=== PATIENT | male | born 2000 | race Caucasian/White ===

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

== ENCOUNTER 2021-12-01 21:33 | Emergency (ER) | payer SELFPAY ==
[2021-12-01 22:08] VITALS: BP 135/88; PULSE 79; TEMP 97.9; BMI 21.2
[2021-12-02] MEDS ORDERED: AMOX TR/POT CLAV 875MG/125MG TABLETS (FP) PO ONE (01:10)
[2021-12-02] MEDS ORDERED: ACETAMINOPHEN 325 MG TABLET (FP) PO ONE (01:10)
[2021-12-02] MEDS ORDERED: ACETAMINOPHEN 325 MG TABLET (FP) ONE (01:12)
[2021-12-02] MEDS ORDERED: AMOX TR/POT CLAV 875MG/125MG TABLETS (FP) ONE (01:12)
[2021-12-02] MEDS ORDERED: KETOROLAC TROMETHAMINE 30 MG/1 ML VIAL IM ONE (01:14)
[2021-12-02] MEDS ORDERED: DEXAMETHASONE SOD PHOSPHATE 10 MG/1 ML VIAL IM ONE (01:14)
[2021-12-02] MEDS ORDERED: KETOROLAC TROMETHAMINE 30 MG/1 ML VIAL ONE (01:16)
[2021-12-02] MEDS ORDERED: DEXAMETHASONE SOD PHOSPHATE 10 MG/1 ML VIAL ONE (01:16)
== END 2021-12-02 01:29 | disposition home or self-care (01) ==
LOC: JER 21:33 → JERFT 21:33 → JER 12-02 01:29
PROC: 3E0233Z Introduction of Anti-inflammatory into Muscle, Percutaneous Approach (ICD-10-PCS; principal; 2021-12-01)
PROC: 3E0233Z Introduction of Anti-inflammatory into Muscle, Percutaneous Approach (ICD-10-PCS; 2021-12-01)
DX: H65.112 Acute and subacute allergic otitis media (mucoid) (sanguinous) (serous), left ear (principal)
CPT/HCPCS: 99285-25; J1100